=== PATIENT | female | born 1990 ===

== ENCOUNTER 2017-11-23 16:29 | Emergency (ER) | payer SELFPAY ==
[2017-11-23 16:36] VITALS: BP 103/66
== END 2017-11-23 21:14 | disposition left against medical advice (07) ==
LOC: ED 16:29
DX: R10.9 Unspecified abdominal pain (principal); Z53.21 Procedure and treatment not carried out due to patient leaving prior to being seen by health care provider

== ENCOUNTER 2017-12-06 07:07 | Emergency (ER) | payer SELFPAY | END 2017-12-06 07:40 | disposition left against medical advice (07) | LOC: ED 07:07 | DX: O03.9 Complete or unspecified spontaneous abortion without complication (principal); Z53.21 Procedure and treatment not carried out due to patient leaving prior to being seen by health care provider ==